=== PATIENT | male | born 1975 | race Caucasian/White ===

== ENCOUNTER 2022-12-30 16:18 | Emergency (ER) | payer OTHER ==
[~2022-12-30] VITALS: Ht 182.9 cm; Wt 70.5 kg
[2022-12-30 16:19] VITALS: TEMP 99.4
[2022-12-30] MEDS ORDERED: LIDOCAINE 1% 10 ML VIAL SQ ONE (16:45)
[2022-12-30] MEDS ORDERED: PERTUSS(ACELL),DIPH,TET VAC/PF 0.5 ML SYRINGE IM. ONE (16:45)
[2022-12-30] MEDS ORDERED: IBUPROFEN 600 MG TABLET PO ONE (17:15)
[2022-12-30] MEDS ORDERED: CEPH-558 PO (17:58)
[2022-12-30 18:00] VITALS: BP 122/85; PULSE 87; RESP 16
== END 2022-12-30 18:41 | disposition home or self-care (01) ==
LOC: EMS 16:19
DX: S61.411A Laceration without foreign body of right hand, initial encounter (principal); W26.8XXA Contact with other sharp object(s), not elsewhere classified, initial encounter; Y93.89 Activity, other specified; Y92.89 Other specified places as the place of occurrence of the external cause; Y99.8 Other external cause status
CPT/HCPCS: 99283; 90715; 90471; 12002; J3490

== ENCOUNTER 2023-01-01 18:33 | Emergency (ER) | payer OTHER ==
[~2023-01-01] VITALS: Ht 182.9 cm; Wt 77.3 kg
[~2023-01-01 18:33] MED LIST: CEPH-558 PO
[2023-01-01 18:46] VITALS: BP 149/83; PULSE 100; RESP 18; TEMP 98.3
[2023-01-01] MEDS ORDERED: IBUP-1492 PO (21:32)
== END 2023-01-01 22:05 | disposition home or self-care (01) ==
LOC: EMS 18:34
DX: S61.412D Laceration without foreign body of left hand, subsequent encounter (principal); Z48.00 Encounter for change or removal of nonsurgical wound dressing; X58.XXXD Exposure to other specified factors, subsequent encounter
CPT/HCPCS: 99282; Z7502

== ENCOUNTER 2023-01-08 21:12 | Emergency (ER) | payer OTHER ==
[~2023-01-08] VITALS: Ht 182.9 cm; Wt 80.9 kg
[~2023-01-08 21:12] MED LIST changes: +IBUP-1492 PO
[2023-01-08 21:23] VITALS: BP 142/91; PULSE 90; RESP 16; TEMP 98.3
== END 2023-01-08 21:45 | disposition home or self-care (01) ==
LOC: EMS 21:13
DX: S60.921D Unspecified superficial injury of right hand, subsequent encounter (principal); Z48.02 Encounter for removal of sutures; X58.XXXD Exposure to other specified factors, subsequent encounter
CPT/HCPCS: 99281; Z7502

== ENCOUNTER 2024-06-18 15:00 | Emergency (ER) | payer SELFPAY ==
[~2024-06-18] VITALS: Ht 182.9 cm; Wt 81.8 kg
[2024-06-18 15:49] VITALS: BP 126/76; PULSE 86; RESP 18; TEMP 97.5; O2SAT 100
[2024-06-18 16:19] LABS: COVID AG,FIA SOURCE NASAL SWAB
[2024-06-18 16:45] LABS: SARS-COV2 (COVID) ANTIGEN,FIA Negative (Negative)
[2024-06-18 16:47] LABS: INFLUENZA TYPE A NEGATIVE FOR TYPE A (NEGATIVE); INFLUENZA TYPE B NEGATIVE FOR TYPE B (NEGATIVE)
[2024-06-18] MEDS ORDERED: AMOX-457 PO (17:16)
[2024-06-18] MEDS ORDERED: ACET-3385 PO (17:16)
[2024-06-18] MEDS ORDERED: IBUP-1492 PO (17:16)
[2024-06-18] MEDS: IBUPROFEN 600 MG TABLET PO ONE (17:34)
[2024-06-18] MEDS: AMOX TR/POT CLAV 875 MG/125 MG TABLET PO ONE (17:34)
== END 2024-06-18 17:39 | disposition home or self-care (01) ==
LOC: EMS 15:00
DX: H66.91 Otitis media, unspecified, right ear (principal); Z20.822 Contact with and (suspected) exposure to COVID-19
CPT/HCPCS: 87804; 99283